=== PATIENT | female | born 1980 | race Hispanic/Latino ===

== ENCOUNTER 2020-12-06 16:17 | Emergency (ER) | payer OTHER ==
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
[2020-12-06] MEDS ORDERED: MORPHINE 4 MG/ML SYR ONE (18:56)
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
[2020-12-06 19:38] VITALS: BP 149/79; TEMP 98.2; O2SAT 99
[2020-12-06 20:08] LABS: Urine Blood NEGATIVE (NEG); Urine Glucose NEGATIVE (NEG); Urine Protein NEGATIVE (NEG)
== END 2020-12-06 19:21 | disposition home or self-care (01) ==
LOC: ER 16:17
DX: S32.019A Unspecified fracture of first lumbar vertebra, initial encounter for closed fracture (principal); S32.029A Unspecified fracture of second lumbar vertebra, initial encounter for closed fracture; V59.40XA Driver of pick-up truck or van injured in collision with unspecified motor vehicles in traffic accident, initial encounter; F17.210 Nicotine dependence, cigarettes, uncomplicated
CPT/HCPCS: 72131; 72192; 81003; 81025; 96372; 99283